=== PATIENT | female | born 1960 | race Two or more races ===

== ENCOUNTER 2022-04-27 13:59 | Emergency (ER) | payer MEDICARE, MEDICAID ==
[~2022-04-27] VITALS: Ht 167.6 cm; Wt 93.1 kg
[2022-04-27 14:40] VITALS: BP 121/77
[2022-04-27] MEDS ORDERED: AUG875T PO (16:16)
[2022-04-27] MEDS ORDERED: IBUP800T27 PO (16:16)
[2022-04-27] MEDS ORDERED: PRED20TA2 PO (16:16)
== END 2022-04-27 16:35 | disposition home or self-care (01) ==
LOC: ER 13:59
DX: H66.93 Otitis media, unspecified, bilateral (principal); I88.9 Nonspecific lymphadenitis, unspecified; Z79.1 Long term (current) use of non-steroidal anti-inflammatories (NSAID); Z79.2 Long term (current) use of antibiotics; Z79.899 Other long term (current) drug therapy